=== PATIENT | female | born 2000 | race Caucasian/White ===

== ENCOUNTER 2022-02-25 21:17 | Emergency (ER) | payer OTHER ==
[2022-02-25 21:32] VITALS: BP 119/80; PULSE 92; RESP 20; TEMP 98.3; BMI 43.0
[2022-02-25] MEDS ORDERED: CARBAMIDE PEROXIDE 6.5% OTIC 15 ML BOTTLE AS ONE (22:11)
== END 2022-02-25 23:15 | disposition home or self-care (01) ==
LOC: JER 21:17
DX: H61.22 Impacted cerumen, left ear (principal)
CPT/HCPCS: 0241U-QW; 99283-25